=== PATIENT | male | born 1990 ===

== ENCOUNTER 2020-01-10 10:56 | Emergency (ER) | payer SELFPAY ==
[2020-01-10 11:03] VITALS: BP 125/82; Wt 90.9 kg
[2020-01-10] MEDS ORDERED: KEFLEX500 MG PO (11:12)
== END 2020-01-10 11:26 | disposition home or self-care (01) ==
LOC: D.ER 10:56
DX: J02.9 Acute pharyngitis, unspecified (principal); Z20.828 Contact with and (suspected) exposure to other viral communicable diseases